=== PATIENT | female | born 1955 | race Native Hawaiian/Other Pacific Islander ===

== ENCOUNTER 2022-03-07 22:28 | Observation (INO) | payer OTHER ==
[~2022-03-07] VITALS: Ht 154.9 cm; Wt 68.6 kg
[2022-03-07 22:28] VITALS: BP 97/62; TEMP 98.8
[2022-03-07 23:20] LABS: PLATELET COUNT 241 K/uL (152-353)
[2022-03-07 23:43] LABS: POTASSIUM 4.3 mmol/L (3.6-5.2)
[2022-03-08 01:57] VITALS: BP 91/62; TEMP 98.3; Ht 154.9 cm; Wt 68.6 kg
[2022-03-08 03:59] VITALS: BP 87/54; TEMP 98.4
[2022-03-08 08:00] VITALS: BP 90/50; TEMP 97.3
[2022-03-08 12:06] VITALS: BP 97/58; TEMP 98.4
[2022-03-08 16:07] VITALS: BP 105/63; TEMP 98.4
[2022-03-08 20:00] VITALS: BP 102/64; TEMP 98.9
[2022-03-09] VITALS: BP 121/69; TEMP 98.9
[2022-03-09 04:00] VITALS: BP 105/61; TEMP 98.2; TEMP 98.9
[2022-03-09 08:00] VITALS: BP 113/66; TEMP 99
[2022-03-09 08:01] LABS: PLATELET COUNT 206 K/uL (152-353)
[2022-03-09 08:37] LABS: POTASSIUM 4.4 mmol/L (3.6-5.2)
[2022-03-09] MEDS ORDERED: ALLO100T22 PO (10:46)
[2022-03-09] MEDS ORDERED: AMITRIPTYLINE H50 MG PO (10:48)
[2022-03-09] MEDS ORDERED: BUSPIRONE10 MG PO (10:49)
[2022-03-09] MEDS ORDERED: BACLOFEN5 MG PO (10:49)
[2022-03-09] MEDS ORDERED: CITALOPRAM40 M1 PO (10:50)
[2022-03-09] MEDS ORDERED: GABA300C2 PO (10:52)
[2022-03-09] MEDS ORDERED: CVS STOOL SOFT100 MG PO (10:52)
[2022-03-09] MEDS ORDERED: INSUINJP SC (10:54)
[2022-03-09] MEDS ORDERED: LISI5TAB10 PO (10:54)
[2022-03-09] MEDS ORDERED: METF100038 PO (10:56)
[2022-03-09] MEDS ORDERED: ENOXAPARIN40 MG/0.1 SC (10:56)
[2022-03-09] MEDS ORDERED: METOCLOPRAM5 MG PO (10:57)
[2022-03-09] MEDS ORDERED: ONDANSETRON4 M2 PO (10:58)
[2022-03-09] MEDS ORDERED: OXYC5TAB24 PO (10:59)
[2022-03-09] MEDS ORDERED: INSULIN GL100 UNIT/M SC (11:00)
[2022-03-09 12:00] VITALS: BP 120/72; TEMP 97.7
[2022-03-09 16:00] VITALS: BP 124/66; TEMP 98.2
[2022-03-09 20:00] VITALS: BP 125/69; TEMP 98.5
[2022-03-10] VITALS: BP 142/72; TEMP 97.4
[2022-03-10 04:00] VITALS: BP 132/78; TEMP 98
[2022-03-10] MEDS ORDERED: PRED20TA27 PO (07:58)
[2022-03-10] MEDS ORDERED: AZIT250T3 PO ×2 (07:58→14:30)
[2022-03-10 08:00] VITALS: BP 108/63; TEMP 97.5
[2022-03-11] MEDS ORDERED: ALLO100T22 PO (12:01)
[2022-03-11] MEDS ORDERED: BACL10TA4 PO (12:01)
[2022-03-11] MEDS ORDERED: BUSP5TAB2 PO (12:02)
[2022-03-11] MEDS ORDERED: DOCU100C10 PO (12:03)
[2022-03-11] MEDS ORDERED: ESCI10TA PO (12:04)
[2022-03-11] MEDS ORDERED: LISI5TAB10 PO (12:05)
[2022-03-11] MEDS ORDERED: GABA300C2 PO (12:05)
[2022-03-11] MEDS ORDERED: INSU300I SC (12:05)
[2022-03-11] MEDS ORDERED: REGLAN 10MG TAB PO (12:06)
[2022-03-11] MEDS ORDERED: ONDA4TAB3 PO (12:06)
[2022-03-11] MEDS ORDERED: OXYC5TAB24 PO (12:06)
[2022-03-11] MEDS ORDERED: METF500T PO (12:06)
[2022-03-11] MEDS ORDERED: NYSTCRE TOP (12:06)
[2022-03-11] MEDS ORDERED: ZITHROMAX 250MG TAB PO (12:08)
[2022-03-11] MEDS ORDERED: PRED10TA27 PO (12:12)
[2022-03-11] MEDS ORDERED: ENOX40IN SC (12:12)
== END 2022-03-10 12:17 | disposition other institution (70) ==
LOC: EDSEX 22:28 → ED 22:28 → MED/SURG 03-08 00:08
PROVIDERS: ADMIT Family Medicine; ATTEND Internal Medicine
DX: E87.1 Hypo-osmolality and hyponatremia (principal); I95.89 Other hypotension; R26.89 Other abnormalities of gait and mobility; R53.1 Weakness; F32.A Depression, unspecified; Z93.3 Colostomy status; U07.1 COVID-19; E11.65 Type 2 diabetes mellitus with hyperglycemia; J40 Bronchitis, not specified as acute or chronic
CPT/HCPCS: 36415; 80053; 82948; 85027; 87040; 87635; 90686; 93005; 94667; 94760; 96360; 96361; 96365; 96366; 96367; 96375; 96376; 99220; 99284; G0378; J0456; J0696; J1815; J2920; J3370; J3490; U0003